=== PATIENT | female | born 1960 | race Two or more races ===

== ENCOUNTER 2016-09-02 06:30 | Emergency (ER) | payer BC ==
--- NOTE | 2016-09-20 15:51 | ER ---
ADMIT: 09/02/2016 RM/LOC: ER [facility] MR#: [id number] [address] [id number] [place]LAH DELGADO [address] [address] Emergency Room Report SEX: F AGE: 56 : 1960 DATE: 09/02/2016 This is a 56-year-old with sinus congestion, pressure, runny nose, and cough. See T-sheet for history and physical. The patient diagnosed with sinusitis. Given amoxicillin. Instructed to stop using her zvju-gwj-udmeetp medicine. Use Claritin, Zyrtec, or Luna. Celio Cooley MD/ breanna JOB #: [id number] CC: Surendra Ratliff MD, Attending Physician Devante Orozco MD, Family Physician
== END 2016-09-02 07:30 | disposition home or self-care (01) ==
LOC: ER 06:30
DX: J32.9 Chronic sinusitis, unspecified (principal); D49.7 Neoplasm of unspecified behavior of endocrine glands and other parts of nervous system; Z79.899 Other long term (current) drug therapy